=== PATIENT | female | born 1995 | race American Indian/Alaskan Native ===

== ENCOUNTER 2024-03-14 07:18 | Emergency (ER) | payer BC, SELFPAY ==
--- NOTE | ~2024-03-14 | US_ITS ---
US pelvic complete DATE: 03/14/2024 08:52 INDICATION: Vaginal bleeding after delivery TECHNIQUE: Real-time imaging via transabdominal approach COMPARISON: None FINDINGS: The uterus measures approximately 16 cm vertical, 8.2 cm AP and 8.3 cm transverse dimension . The central endometrial echo complex measures up to 3.8 cm. There is Doppler vascular signal at the endometrial thickening. Findings suggest retained products of conception. The ovaries and adnexal areas are unremarkable. The right ovary measures 3.5 x 2.6 x 1.4 cm, with vas cular flow. The left ovary measures 2.3 x 2.3 x 2.4 cm, with vascular flow. No abnormal free pelvic f luid collection is detected. IMPRESSION: Probably endometrial soft tissue thickening, measuring up to 3.8 cm AP dimension, with so me vascularity, suggesting retained products of conception Reviewed, dictated and finalized at [facility]. Reviewed, dictated and finalized at [facility]. IMPRESSION: Probably endometrial soft tissue thickening, measuring up to 3.8 cm AP dimension, with some vascularity, suggesting retained products of conceptio n
[2024-03-14 07:12] VITALS: BP 103/73; PULSE 86; RESP 17; TEMP 36.7; O2SAT 100
[2024-03-14 08:00] VITALS: BP 115/77; PULSE 85; RESP 20; O2SAT 100
[2024-03-14 08:14] LABS: Prothrombin Time 13.4 Seconds (11.1-14.7)
[2024-03-14 08:15] LABS: Alanine Aminotransferase 15 U/L (6-35); Albumin Level 2.8 g/dL (3.5-5.1); Alkaline Phosphatase 74 U/L (38-126); Anion Gap 6 mmol/L (4-12); Aspartate Amino Transferase 17 U/L (14-36); Bilirubin,Total 0.2 mg/dL (0.2-1.3); Blood Urea Nitrogen 20 mg/dL (7-17); Carbon Dioxide 19 mmol/L (22-30); Chloride 111 mmol/L (98-107); Estimated CRCL calculation 145 ml/min; Estimated Glomerular Filt Rate > 60; Glucose 99 mg/dL (65-110); Partial Thromboplastin Time 26.4 Seconds (22.3-36.8); Potassium 4.5 mmol/L (3.4-5.0); Sodium 136 mmol/L (137-145)
[2024-03-14 08:16] LABS: Basophils Percent Auto 0.4 % (0.2-1.2); Eosinophils Absolute Auto 0.1 K/mm3 (0-0.3); Eosinophils Percent Auto 1.3 % (0-4.4); Hematocrit 31.5 % (37.0-47.0); Hemoglobin 9.9 g/dL (12.0-15.0); Immature Granulocyte Absolute 0.06 K/mm3 (0.00-0.031); Immature Granulocyte Percent A 0.8 % (0-0.5); Lymphocytes Absolute Auto 1.95 K/mm3 (0.9-3.2); Lymphocytes Percent Auto 25.7 % (18.3-44.2); Mean Corpuscular HGB Conc 31.4 g/dl (32-36); Mean Corpuscular Hemoglobin 30.6 pg (26-34); Mean Corpuscular Volume 97.2 fl (80-100); Mean Platelet Volume 10.5 fl (7.4-10.4); Monocytes Absolute Auto 0.6 K/mm3 (0.1-0.6); Monocytes Percent Auto 8.4 % (2.6-8.5); Neutrophils Absolute Auto 4.8 K/mm3 (1.3-6.7); Neutrophils Percent Auto 63.4 % (45.5-73.1); Platelet Count Result 239 k/mm3 (150-375); Red Blood Count 3.24 M/mm3 (4.2-5.4); Red Cell Distribution Width 13.1 % (11.5-14.5); White Blood Count 7.6 K/mm3 (4.5-10.0)
--- NOTE | 2024-03-14 08:21 | ED.GENADULT ---
HPI - General Adult General Chief complaint: Vaginal Bleeding Stated complaint: vag bleed Time Seen by Provider: 03/14/24 07:21 History of Present Illness HPI narrative: Patient is a 28-year-old female who presents to the ER with vaginal bleeding. Patient is 1 week . She had a vaginal delivery at [facility]. She reports she has had some brown discharge since the delivery and had no bleeding or discharge yesterday. This morning she felt pressure in cramping and started having bright red vaginal bleeding with passage of large clots. No syncope. Called EMS and came here. She is on no blood thinning and agents. She did not have any tears during her delivery. She reports that she had no complications during her . She is currently . Related Data Allergies Allergy/AdvReac Type Severity Reaction Status Date / Time No Known Allergies Allergy Verified 03/14/24 07:24 Review of Systems Review of Systems: All systems reviewed & are unremarkable except as noted in HPI and below Constitutional: Constitutional: Reports no additional constitutional complaints Cardiovascular: Cardiovascular: Reports no additional cardiovascular complaints Respiratory: Respiratory: Reports no additional respiratory complaints Gastrointestinal: Gastrointestinal: Reports no additional gastrointestinal complaints Genitourinary: Genitourinary: Reports abnormal vaginal bleeding, Denies dysuria, Denies pelvic pain and Denies flank pain Musculoskeletal: Musculoskeletal: Reports no additional musculoskeletal complaints PMFSH Past Medical History Medical History (Updated 03/14/24 @ 10:00 by Charanjit Stern MD) Healthy female adult Surgical History Surgical History (Updated 03/14/24 @ 08:24 by Charanjit Stern MD) History of tonsillectomy Exam Narrative: GENERAL: Well-appearing, well-nourished, and in no acute distress. HEAD: Normocephalic, atraumatic. ENT: Mucous membranes moist. CHEST: Clear to auscultation. No respiratory distress. HEART: Regular rate and rhythm. Normal peripheral pulses. ABDOMEN: Soft, nontender, nondistended. : Normal external genitalia. Cervix difficult to identify. Mild moderate amount of blood within the vault, small clot the size of a date removed. No hemorrhage. EXTREMITIES: Normal range of motion. No edema. SKIN: Warm, dry, no rash. NEURO: Alert and oriented x3. PSYCH: Normal mood and affect. Course Course Emergency Course: Mild anemia on lab work. Retained products on ultrasound. Discussed with Dr. Mcwilliams with OB at [place]. Recommends transfer to the [facility] for further evaluation. Patient will stay NPO. Offered transport by BLS or private care and patient prefers EMS. Vital Signs Vital signs: Vital Signs Temperature 98.1 F 03/14/24 07:12 Pulse Rate 86 03/14/24 07:12 Respiratory Rate 17 03/14/24 07:12 Blood Pressure 103/73 03/14/24 07:12 Pulse Oximetry 100 03/14/24 07:12 Oxygen Delivery Room Air 03/14/24 07:12 Temperature 98.1 F 03/14/24 07:12 Pulse Rate 80 03/14/24 10:42 Respiratory Rate 16 03/14/24 10:42 Blood Pressure 111/71 03/14/24 10:42 Pulse Oximetry 100 03/14/24 10:42 Oxygen Delivery Room Air 03/14/24 07:12 Medical Decision Making Vital Signs Vital Signs: Vital Signs Temperature 98.1 F 03/14/24 07:12 Pulse Rate 86 03/14/24 07:12 Respiratory Rate 17 03/14/24 07:12 Blood Pressure 103/73 03/14/24 07:12 Pulse Oximetry 100 03/14/24 07:12 Oxygen Delivery Room Air 03/14/24 07:12 Temperature 98.1 F 03/14/24 07:12 Pulse Rate 80 03/14/24 10:42 Respiratory Rate 16 03/14/24 10:42 Blood Pressure 111/71 03/14/24 10:42 Pulse Oximetry 100 03/14/24 10:42 Oxygen Delivery Room Air 03/14/24 07:12 Lab Data 03/14/24 07:58 03/14/24 07:58 Labs: Lab Results 03/14/24 Range/Units 07:58 WBC 7.6 (4.5-10.0) K/mm3 RBC
[2024-03-14 08:57] VITALS: BP 116/88; PULSE 81; RESP 17; O2SAT 100
[2024-03-14 09:57] VITALS: BP 118/70; PULSE 78; RESP 17; O2SAT 98
[2024-03-14 10:42] VITALS: BP 111/71; PULSE 80; RESP 16; O2SAT 100
== END 2024-03-14 10:46 | disposition short-term general hospital (02) ==
PROVIDERS: Emergency Provider Emergency Medicine
DX: O72.2 Delayed and secondary postpartum hemorrhage (principal); Z37.9 Outcome of delivery, unspecified
CPT/HCPCS: 36415; 76856; 80053; 85025; 85610; 85730; 86850; 86900; 86901; 99285